=== PATIENT | male | born 1975 | race Two or more races ===

== ENCOUNTER 2017-07-11 17:58 | Emergency (ER) | payer MEDICAID, OTHER ==
[~2017-07-11] VITALS: Ht 177.8 cm; Wt 126.6 kg
[2017-07-11] MEDS: Ketorolac 60mg Inj IM ONE ×2 (19:10→19:13)
[2017-07-11] MEDS ORDERED: Meclizine 25mg tab ORAL ONE (19:15)
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
[2017-07-11 19:19] VITALS: BP 137/85
[2017-07-11] MEDS ORDERED: ROBAXIN-750750 MG PO (19:31)
[2017-07-11] MEDS ORDERED: ACETAMINOPHEN-1 EAC1 ORAL (19:31)
[2017-07-11] MEDS ORDERED: PREDNISONE10 M2 PO (20:24)
[2017-07-11 20:30] VITALS: BP 147/87
[2017-07-11 20:36] VITALS: BP 147/87
--- NOTE | 2017-07-12 09:03 | Diagnostic Imaging Report ---
Indication: Chest pain Technique: One view of the chest Comparison: none Findings: Lungs and pleural spaces are clear. Heart size is normal Impression: No acute process
--- NOTE | 2017-07-12 10:13 | Diagnostic Imaging Report ---
Indication: Trauma, neck pain Technique: Spiral acquisitions obtained through the cervical spine. No IV contrast utilized. Multiplanar reconstructions were generated. Total dose length product 656.12 mGycm. CTDIvol(s) 27.41 mGy. Dose reduction achieved using automated exposure control. Comparison: none Findings: There is slight straightening of the normal cervical lordosis. Otherwise normal bony alignment. No acute fractures. No dislocations. The disc spaces are preserved. Vertebral body heights are preserved. No prevertebral soft tissue swelling. No significant disc bulge or protrusion, spinal stenosis, or neural foraminal narrowing demonstrated. Included extraspinal soft tissues are unremarkable. Impression: Negative This agrees with the preliminary interpretation provided overnight by [facility]. The CT scanner at [facility] is accredited by the [employer] and the scans are performed using protocols designed to limit radiation exposure to as low as reasonably achievable to attain images of sufficient resolution adequate for diagnostic evaluation.
--- NOTE | 2017-07-12 10:13 | Diagnostic Imaging Report ---
Indications: Headache Technique: Spiral acquisitions obtained through the brain. Angled axial and coronal 5 x 5 mm slices were reconstructed. Total dose length product 1428.59 mGycm. CTDI vol(s) 70.38 mGy. Dose reduction achieved using automated exposure control Comparison: None. Findings: Supraclinoid aneurysm coils are seen in the midline. These throw off streak artifact which could obscure pathology. No acute intracranial hemorrhage or edema. No mass effect nor midline shift. Normal chacko-white differentiation. Intact calvarium. Visualized orbits and sinuses are unremarkable. The mastoids are clear. Impression: Evidence of prior aneurysm coiling Negative for acute intracranial bleed or mass effect This agrees with the preliminary interpretation provided overnight by [facility]. The CT scanner at [facility] is accredited by the [employer] and the scans are performed using protocols designed to limit radiation exposure to as low as reasonably achievable to attain images of sufficient resolution adequate for diagnostic evaluation.
== END 2017-07-11 20:36 | disposition home or self-care (01) ==
LOC: EMR 20:08
DX: S06.0X0A Concussion without loss of consciousness, initial encounter (principal); V43.52XA Car driver injured in collision with other type car in traffic accident, initial encounter; Y92.9 Unspecified place or not applicable; I10 Essential (primary) hypertension
CPT/HCPCS: 70450; 71045; 72125; 99284